=== PATIENT | female | born 1995 | race American Indian/Alaskan Native ===

== ENCOUNTER 2021-06-11 16:05 | Inpatient (IN) | payer MEDICAID ==
[2021-06-11] MEDS ORDERED: LACTATED RINGERS 1,000 ML ONE (16:52)
--- NOTE | 2021-06-11 16:58 | Event Note ---
Date: 06/11/21 pt arrived via EMS w/ c/o ctx. She denies leaking of fluid. Pt reports being seen at her doctor's office yesterday and states they stripped her membranes and had some bleeding earlier today but that has since stopped. Patient states she doesn't know when her due date is "some time in May." She reports LMP was "sometime before or after MLK day" but she doesn't know. hx of x 3 - when asked about the weights she reports the first one was "small" and the other 2 children were "juicy" but she does not know their size. SVE 2.5/70/-2, mi dposition and soft. ctx do not appear regular, FHT currently CAT 2. Will give IVF and get u/s for BPP and presentation.
[2021-06-11] MEDS ORDERED: LACTATED RINGERS 1,000 ML IV SCH (17:00)
--- NOTE | 2021-06-11 17:14 | History and Physical Report ---
History of Present Illness Date of examination: 06/11/21 Chief complaint: contractions since yesterday when her doctor stripped her membranes History of present illness: Pt reports care with Dr. Serrano at the [facility]. She is a poor historian - does not know EDC, LMP, weights of other babies. she thinks maybe 06/19/2021. She reports 3 NSVDs; denies hx GDM, pre-e or surgery for childbirth She reports T&A as child Attempting to get records from [facility], they do not have access to records. called number on pt's appt card - spoke to 4 different answering services and finally spoke to [employer] medical answering service. They will send message to Dr. Serrano. 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: denies: cancer, chlamydia, fibroids, gonorrhea, hepatitis B, hepatitis C, herpes, HIV, syphilis, trichomonas Family/Genetic History: none Social history: no significant social history - Obstetrical History Expected Date of Delivery: 06/04/21 Actual Gestation: 41 Week(s) 0 Day(s) : 4 Para: 3 Hx # Term Pregnancies: 3 Number of Pregnancies: 0 Spontaneous Abortions: 0 Induced : 0 Number of Living Children: 3 Medications and Allergies Allergies Allergy/AdvReac Type Severity Reaction Status Date / Time No Known Allergies Allergy Verified 06/11/21 17:37 Active Meds: Active Medications Lactated Ringer's (Lactated Ringers) 1,000 mls @ 150 mls/hr IV DIRECT CARLEY Review of Systems All systems: negative - Vital Signs Vital signs: Vital Signs Pulse Pulse Ox 112 H 96 06/11/21 16:23 06/11/21 16:23 Temp Pulse Resp BP Pulse Ox 102 H 112/53 100 06/11/21 17:03 06/11/21 16:50 06/11/21 17:03 - Physical Exam Breasts: Positive: normal Cardiovascular: Regular rate Lungs: Positive: Normal air movement Abdomen: Positive: normal appearance, soft Genitourinary (Female): Positive: normal external genitalia, normal perenium Vulva: both: normal Vagina: Positive: normal moisture Uterus: Positive: normal size, normal contour Anus/Rectum: Positive: normal perianal skin Extremities: Positive: normal Deep Tendon Reflex Grade: Normal +2 - Obstetrical FHR: category 2 Uterine Contraction Monitor Mode: External Cervical Dilatation: 2 Cervical Effacement Percentage: 70 station: -2 Uterine Contraction Frequency (min): 4-5 Uterine Contraction Duration: 60 Uterine Contraction Pattern: Regular Uterine Tone Measurement Phase: Contraction Uterine Contraction Intensity: Mild Results All other labs normal. Assessment and Plan 25y/o due sometimes in May, reports painful ctx since having her membrane stripped in her doctor's office yesterday. Pt reports she is supposed to deliver at [place] and that her Doctor is "Dr. Serrano." CAT 2 FHT with baseline 160's and late decels. walk-in labs ordered. will start treatment for unknown GBS. pt reports baby was breech, feels like vtx during SVE but will get u/s to verify. Plan for IVF bolus, AROM and IUPC/ISE placement for accurate monitoring. Admission orders in EMR. plan to admit and place internal monitors as soon as vertex is confirmed. Working EDC set by patient's response on admission questionnaire (06/04/2021), pt later admitted she made that date up but it's the only date we have. FHT necessitate intervention at this time. Dr. Swain made aware. * [facility] has no records for patient. - Patient Problems (1) Poor historian Current Visit: Yes Status: Acute (2) Non-reassuring electronic monitoring tracing Current Visit: Yes Status: Acute
[2021-06-11 17:57] LABS: Basophils % (Auto) 0.3 % (0.0-1.8); Eosinophils # (Auto) 0.1 K/mm3 (0.0-0.4); Eosinophils % (Auto) 0.6 % (0.0-4.3); Hematocrit 35.5 % (30.3-42.9); Hemoglobin 12.1 gm/dl (10.1-14.3); Lymphocytes # (Auto) 1.7 K/mm3 (1.2-5.4); Lymphocytes % (Auto) 14.7 % (13.4-35.0); Mean Corpuscular HGB Conc 34 % (30-34); Mean Corpuscular Volume 93 fl (79-97); Monocytes # (Auto) 0.5 K/mm3 (0.0-0.8); Monocytes % (Auto) 4.7 % (0.0-7.3); Platelet Count 205 K/mm3 (140-440); Red Blood Count 3.81 M/mm3 (3.65-5.03); Red Cell Distribution Width 14.3 % (13.2-15.2)
--- NOTE | 2021-06-11 18:16 | Event Note ---
Date: 06/11/21 Patient now c/o leaking fluid x2 days, no bag noted during second exam. Purulent meconiucm fluid noted when IUPC placed - suspect chorio. Pt has progressed to 4cms rather quickly, ctx are now 2 minutes apart.
[2021-06-11 18:28] LABS: Hepatitis C Virus Antibody Non-Reactive (NonReactive)
[2021-06-11] MEDS ORDERED: OXYTOCIN DRIP 30 UNITS/500 ML BAG IV SCH (18:35)
--- NOTE | 2021-06-11 18:38 | Ultrasound Report ---
Limited obstetrical ultrasound INDICATION: Advanced , position evaluation COMPARISON: None FINDINGS: Advanced intrauterine fetus is seen in a cephalic position. Central is not well imaged but is free of the internal cervical os. cardiac activity was documented at 159 bpm. Signer Name: Derik Pastrana MD Signed: 06/11/2021 6:34 PM Workstation Name: [id number]
[2021-06-11] MEDS ORDERED: AMPICILLIN/NS 2 GM/100 ML 2 GM/100 ML BAG IV ONE (19:00)
[2021-06-11] MEDS ORDERED: ACETAMINOPHEN 500 MG TAB PO ONE (19:00)
[2021-06-11] MEDS ORDERED: SODIUM CHLORIDE 0.9% 500 ML 500 ML ONE (19:36)
[2021-06-11] MEDS ORDERED: LACTATED RINGERS 250 ML IV SOLN IV ONE (19:54)
[2021-06-11] MEDS ORDERED: ONDANSETRON 4 MG/2 ML INJ IV PRN (19:54)
[2021-06-11] MEDS ORDERED: NALOXONE 2 MG/2 ML INJ IV PRN (19:54)
[2021-06-11] MEDS ORDERED: NalbUPHINE 10 MG/1 ML INJ IV PRN (19:54)
[2021-06-11] MEDS ORDERED: diphenhydrAMINE 50 MG/ML VIAL IV PRN (19:54)
[2021-06-11] MEDS ORDERED: ePHEDrine SULFATE 50 MG/1 ML INJ IV PRN (19:54)
[2021-06-11] MEDS ORDERED: fentaNYL-BUPIV 2 MCG/ML-0.125% 200 MCG/100 ML BAG EPIDURAL SCH (20:00)
--- NOTE | 2021-06-11 20:00 | Progress Note ---
Assessment and Plan - Patient Problems (1) 39 weeks gestation of Current Visit: Yes Status: Acute (2) Poor historian Current Visit: Yes Status: Acute (3) Body mass index (BMI) greater than 40 Current Visit: Yes Status: Acute Plan to address problem: Observe closely Subjective - Subjective Date of service: 06/11/21 Principal diagnosis: IUP@39 6/7 weeks, poor historian Interval history: S/w from [facility] who states EDC 06/12/2021, she was being evaluated at their facility d/t Morbid obesity and anxiety (no medication). EFW last week ~7lb 7oz, cephalic. No other complications. Patient reports: loss of fluid, movement normal, contractions Objective - Vital Signs Vital Signs: Vital Signs - 12hr 06/11/21 06/11/21 06/11/21 16:23 16:28 16:33 Temperature Pulse Rate 112 H 101 H 112 H Respiratory Rate Blood Pressure O2 Sat by Pulse 96 95 96 Oximetry 06/11/21 06/11/21 06/11/21 16:38 16:43 16:45 Temperature Pulse Rate 98 H 101 H 116 H Respiratory Rate Blood Pressure O2 Sat by Pulse 97 97 87 Oximetry 06/11/21 06/11/21 06/11/21 16:48 16:50 16:53 Temperature Pulse Rate 104 H 95 H 105 H Respiratory Rate Blood Pressure 112/53 O2 Sat by Pulse 98 96 Oximetry 06/11/21 06/11/21 06/11/21 16:58 17:03 17:08 Temperature Pulse Rate 94 H 102 H 110 H Respiratory Rate Blood Pressure O2 Sat by Pulse 98 100 98 Oximetry 06/11/21 06/11/21 06/11/21 17:09 17:13 17:16 Temperature Pulse Rate 59 L 113 H 52 L Respiratory Rate Blood Pressure O2 Sat by Pulse 72 L 98 92 Oximetry 06/11/21 06/11/21 06/11/21 17:18 17:22 17:23 Temperature Pulse Rate 90 96 H 96 H Respiratory Rate Blood Pressure 123/72 O2 Sat by Pulse 100 100 Oximetry 06/11/21 06/11/21 06/11/21 17:28 17:33 17:38 Temperature Pulse Rate 92 H 89 99 H Respiratory Rate Blood Pressure O2 Sat by Pulse 100 100 100 Oximetry 06/11/21 06/11/21 06/11/21 17:43 18:20 18:38 Temperature 98.3 F Pulse Rate 98 H 107 H Respiratory 20 Rate Blood Pressure O2 Sat by Pulse 100 100 Oximetry 06/11/21 06/11/21 06/11/21 18:43 18:48 18:53 Temperature Pulse Rate 109 H 108 H 111 H Respiratory Rate Blood Pressure O2 Sat by Pulse 100 100 100 Oximetry 06/11/21 06/11/21 06/11/21 18:55 18:58 19:03 Temperature Pulse Rate 112 H 111 H 107 H Respiratory Rate Blood Pressure 121/71 O2 Sat by Pulse 100 100 Oximetry 06/11/21 06/11/21 06/11/21 19:08 19:13 19:18 Temperature Pulse Rate 101 H 111 H 106 H Respiratory Rate Blood Pressure O2 Sat by Pulse 100 100 100 Oximetry 06/11/21 06/11/21 06/11/21 19:23 19:28 19:33 Temperature Pulse Rate 111 H 105 H 101 H Respiratory Rate Blood Pressure O2 Sat by Pulse 100 100 100 Oximetry 06/11/21 06/11/21 19:38 19:43 Temperature Pulse Rate 101 H 105 H Respiratory Rate Blood Pressure O2 Sat by Pulse 100 100 Oximetry - Exam Breasts: deferred Lungs: Normal air movement Abdomen: Present: soft, other (obese). Absent: tenderness Vulva: both: normal Uterus: Present: fundal height above umbilicus. Absent: tenderness FHR: category 2 Uterine Contraction Monitor Mode: Internal Cervical Dilatation: 4 Cervical Effacement Percentage: 50 station: -2 Uterine Contraction Frequency (min): 2-3 Uterine Contraction Pattern: Regular Extremities: normal - Labs Labs: Abnormal Labs 06/11/21 17:30 WBC 11.3 H Seg Neutrophils % 79.7 H Seg Neutrophils # 9.0 H Laboratory Results - last 24 hr 06/11/21 06/11/21 06/11/21 17:30 17:30 17:30 WBC 11.3 H RBC 3.81 Hgb 12.1 Hct 35.5 MCV 93 MCH 32 MCHC 34 RDW 14.3 Plt Count 205 Lymph % (Auto) 14.7 [place] % (Auto) 4.7 Eos % (Auto) 0.6 Baso % (Auto) 0.3 Lymph # (Auto) 1.7 [place] # (Auto) 0.5 Eos # (Auto) 0.1 Baso # (Auto) 0.0 Seg Neutrophils % 79.7 H Seg Neutrophils # 9.0 H Syphilis IgG Antibody Hep Bs Antigen Nonreactive Hepatitis C Antibody Non-reactive HIV 1&2 Antibody Rapid HIV P24 Antigen Rubella IgG Antibody Immune Blood Type 06/11/21 06/11/21 06/11/21 17:30 17:30 19:04 WBC RBC Hgb Hct MCV MCH MCHC RDW Plt Count Lymph % (Auto) [place] % (Auto) Eos % (Auto) Baso % (Auto) Lymph # (Auto) [place] # (Auto) Eos # (Auto) Baso # (Auto) Seg Neutrophils % Seg Neutrophils # Syphilis IgG Antibody Nonreactive Hep Bs Antigen Hepatitis C Antibody HIV 1&2 Antibody Rapid Non react HIV P24 Antigen Non react Rubella IgG Antibody Blood Type O POSITIVE
--- NOTE | 2021-06-11 20:26 | Anesthesia Consultation ---
Anesthesia Consult and Med Hx Date of service: 06/11/21 - Airway Anesthetic Teeth Evaluation: Good ROM Head & Neck: Adequate Mental/Hyoid Distance: Adequate Mallampati Class: Class III Intubation Access Assessment: Possibly Difficult - Pulmonary Exam CTA: Yes - Cardiac Exam Cardiac Exam: RRR - Pre-Operative Health Status ASA Pre-Surgery Classification: ASA3 Proposed Anesthetic Plan: Epidural - Pulmonary Hx Smoking: Yes Hx Asthma: Yes COPD: No Hx Pneumonia: No Hx Sleep Apnea: No - Cardiovascular System Hx Hypertension: No Hx Heart Attack/AMI: No Hx Angina: No - Central Nervous System Hx Seizures: No Hx Psychiatric Problems: Yes (Depression) - Gastrointestinal Hx Gastroesophageal Reflux Disease: No - Endocrine Hx Renal Disease: No Hx End Stage Renal Disease: No Hx Liver Disease: No Hx Insulin Dependent Diabetes: No Hx Non-Insulin Dependent Diabetes: No Hx Hypothyroidism: No Hx Hyperthyroidism: No - Hematic Hx Anemia: No Hx Sickle Cell Disease: No - Other Systems Hx Alcohol Use: No Hx Obesity: Yes
--- NOTE | 2021-06-11 20:27 | Progress Note ---
Labor Epidural - Labor Epidural Start Time: 20:15 Stop Time: 20:22 Performed by:: BOZENA NAQVI Procedure: Patient is requesting epidural for labor and pain. H&P, labs were reviewed. Patient IDed, H&P reviewed, all questions and concerns were answered, and consent was signed. Timeout was performed at bedside. Patient in sitting position. Sterile prep and drape was performed. 3ml of 1% lidocaine skin wheal at L[3]- L [4]. 18-gauge Qualtré epidural needle was advanced to loss of resistance with air technique 7cm. Negative CSF negative blood. Epidural catheter advanced to [12] centimeters. [negative] Aspiration [negative] test dose. Sterile dressing applied. Patient tolerated procedure.
--- NOTE | 2021-06-11 20:50 | Procedure Note ---
OB Delivery Note - Delivery Date of Delivery: 06/11/21 Surgeon: ZENY MATTHEWS Estimated blood loss: 200cc - Vaginal Delivery presentation: vertex Delivery position: OA Intrapartum events: decreased FHT variability, mult.variable deceleratio, other(please specify) (Maternal obesity, ) Delivery induction: none Delivery monitor: external FHT, external uterine, internal uterine Route of delivery: Delivery placenta: spontaneous (intact) Episiotomy: none Delivery laceration: none Anesthesia: epidural Delivery comments: Patient felt urge to push while sitting for epidural. After completion of epidural she was found to be100/100/+2. She was placed in stirrups and delivery liveborn female infant with one push. Spontaneous cry and vigorous tone. place on blanket on mom's abdomen. Cord clamp placed followed by Mavis clamp after pulsation stopped. Cord cut by SO. RUBIN RN at bedside. Placenta spontaneously delivered intact, order given to sent to pathology. No vaginal, labial, perineal or cervcal lacerations. Fundus firm, Pitocin bolusing IV. - A at 1 minute: 8 at 5 minutes: 9 Gender: Female (7lb 1oz)
[2021-06-11] MEDS ORDERED: AMPICILLIN/NS 1 GM/50 ML 1 GM/50 ML BAG IV SCH (22:00)
[2021-06-12] MEDS ORDERED: diphenhydrAMINE 25 MG CAP PO PRN (00:10)
[2021-06-12] MEDS ORDERED: ONDANSETRON 4 MG/2 ML INJ IV PRN (00:10)
[2021-06-12] MEDS ORDERED: PROMETHAZINE 25 MG RECT SUPP PR PRN (00:10)
[2021-06-12] MEDS ORDERED: PROMETHAZINE 25 MG TAB PO PRN (00:10)
[2021-06-12] MEDS ORDERED: MAGNESIUM HYDROXIDE (MOM) ORAL LIQD UDC PO PRN (00:10)
[2021-06-12] MEDS ORDERED: WITCH HAZEL/ GLYCERIN PAD TP PRN (00:10)
[2021-06-12] MEDS ORDERED: LANOLIN/ZINC/DIMETHICONE (LANSINOH) 7 GM TP PRN (00:10)
[2021-06-12] MEDS: IBUPROFEN 600 MG TAB PO SCH ×2 (02:09→14:54)
--- NOTE | 2021-06-12 08:23 | Progress Note ---
Assessment and Plan Pt in bed, sleeping, infant sleeping in bed w/ her and moved safely to crib. Pt roused, and stated "I feel like I'm on a cloud." No complaints voiced, fundus firm, lochia scant, H&H 12.1/35.5, and VSSAF. Social service consult ordered d/t concerns about pt's ability to care for self and children at d/c. - Patient Problems (1) Poor historian Current Visit: Yes Status: Acute (2) (normal spontaneous vaginal delivery) Current Visit: Yes Status: Acute Plan to address problem: Continue PP Pathway Anticipate D/C tomorrow Subjective - Subjective Date of service: 06/12/21 Principal diagnosis: PP Day 1, poor historian Interval history: Pt reports care with [facility]. She is a poor historian - does not know EDC, LMP, weights of other babies. she thinks maybe 06/19/2021. She reports 3 NSVDs; denies hx GDM, pre-e or surgery for childbirth She reports T&A as child Attempting to get records from [facility], they do not have access to records. called number on pt's appt card - spoke to 4 different answering services and finally spoke to [email or web address] medical answering service. They will send message to Dr. Serrano. Patient reports: appetite normal, voiding normally, ambulating normally : doing well Objective - Vital Signs Latest vital signs: Vital Signs Temp Pulse Resp BP BP Pulse Ox Pulse Ox 06/12/21 04:53 97.2 F L 93 H 18 113/71 99 06/11/21 23:10 98.4 F 96 H 18 132/72 99 99 06/11/21 22:58 98.7 F 100 H 18 114/55 99 06/11/21 22:23 110 H 99 06/11/21 22:18 112 H 97 06/11/21 22:14 109 H 114/55 06/11/21 22:13 109 H 99 06/11/21 22:08 103 H 97 06/11/21 22:03 113 H 98 06/11/21 22:00 105 H 119/57 06/11/21 21:58 105 H 98 06/11/21 21:53 103 H 97 06/11/21 21:48 105 H 98 21 21:45 116 H 199/163 21 21:43 214 H 99 06/11/21 21:38 110 H 99 06/11/21 21:33 145 H 99 06/11/21 21:28 122 H 100 06/11/21 21:23 122 H 99 21 21:18 119 H 99 06/11/21 21:15 108 H 127/57 06/11/21 21:13 121 H 99 06/11/21 21:08 141 H 100 06/11/21 21:03 117 H 95 06/11/21 21:02 113 H 94 21 20:58 103 H 98 21 20:53 102 H 97 06/11/21 20:52 104 H 150/67 06/11/21 20:48 103 H 91 06/11/21 20:47 88 114/75 06/11/ 20:43 111 H 100 06/11/21 20:42 105 H 110/55 06/11/21 20:38 100 H 100 06/11/21 20:33 100 H 100 06/11/21 20:28 110 H 100 06/11/21 20:27 113 H 180/75 06/11/21 20:23 107 H 100 21 20:18 98 H 100 06/11/21 20:17 106 H 87 06/11/21 20:13 104 H 99 06/11/21 20:08 100 H 99 06/11/21 20:03 98 H 100 06/11/21 19:58 98 H 100 21 19:53 106 H 100 21 19:48 102 H 100 06/11/21 19:43 105 H 100 21 19:38 101 H 100 06/11/21 19:33 101 H 100 06/11/21 19:28 105 H 100 10/21 19:23 111 H 100 10/21 19:18 106 H 100 10//21 19:13 111 H 100 10/21 19:08 101 H 100 10/21 19:03 107 H 100 1013/21 18:58 111 H 100 10/21 18:55 112 H 121/71 21 18:53 111 H 100 10/21 18:48 108 H 100 06/11/21 18:43 109 H 100 06/11/21 18:38 107 H 100 06/11/21 18:20 98.3 F 20 06/11/21 17:43 98 H 100 06/11/21 17:38 99 H 100 06/11/21 17:33 89 100 06/11/21 17:28 92 H 100 06/11/21 17:23 96 H 100 06/11/21 17:22 96 H 123/72 06/11/21 17:18 90 100 06/11/21 17:16 52 L 92 06/11/21 17:13 113 H 98 06/11/21 17:09 59 L 72 L 06/11/21 17:08 110 H 98 06/11/21 17:03 102 H 100 06/11/21 16:58 94 H 98 06/11/21 16:53 105 H 96 06/11/21 16:50 95 H 112/53 06/11/21 16:48 104 H 98 06/11/21 16:45 116 H 87 06/11/21 16:43 101 H 97 06/11/21 16:38 98 H 97 06/11/21 16:33 112 H 96 06/11/21 16:28 101 H 95 06/11/21 16:23 112 H 96 Intake and Output 06/11/21 06/12/21 06/12/21 23:59 07:59 15:59 Intake Total 200 Output Total 800 800 Balance -800 -600 Intake: Intake, Free Water 200 Output: Urine 800 800 Indwelling Catheter 800 Void 800 Other: Total, Output Amount 800 500 # Bowel Movements 1 Weight 107.955 kg Estimated Blood Loss 200 - Exam Cardiovascular: Present: Regular rate Lungs: Present: Normal air movement Abdomen: Present: normal appearance, soft Uterus: Present: normal, firm, fundal height at umbilicus Extremities: Present: normal - Labs Labs: Abnormal lab results 06/11/21 Range/Units 17:30 WBC 11.3 H (4.5-11.0) K/mm3 Seg Neutrophils % 79.7 H (40.0-70.0) % Seg Neutrophils # 9.0 H (1.8-7.7) K/mm3
[2021-06-12 14:06] LABS: Hematocrit 30.8 % (30.3-42.9); Hemoglobin 10.4 gm/dl (10.1-14.3)
[2021-06-12 15:40] LABS: Amphetamine Screen,Urine Negative; Benzodiazepines Screen,Urine Negative; Cannabinoid Screen,Urine Negative; Cocaine Screen,Urine Negative; Methadone Screen,Urine Negative; Opiate Screen,Urine Negative
--- NOTE | 2021-06-12 17:21 | Post Anesthesia Evaluation ---
- Post Anesthesia Evaluation Patient Participated: Yes Airway Patent: Yes Stable Respiratory Function: Yes Nausea/Vomiting: No Temp > 96.8F: Yes Pain Manageable: Yes Adequeate Hydration: Yes Anesthesia Complications: No Block Receding Appropriately: Yes Patient on Ventilator: No
[2021-06-12] MEDS ORDERED: ACETAMINOPHEN 500 MG TAB PO PRN (22:02)
--- NOTE | 2021-06-12 22:07 | Event Note ---
Date: 06/12/21 received call from DOTTIE RN, pt had low grade temp 100.1 on day shift and was given dose of motrin. She is now shivering w/ oral temp of 101. Ordered given for PO Tylenol, urine culture and BC x 2. will continue to monitor.
[2021-06-13] MEDS: IBUPROFEN 600 MG TAB PO SCH ×2 (00:24→05:46)
[2021-06-13] MEDS ORDERED: IBUPROFEN 600 MG TAB PO SCH (07:56)
[2021-06-13] MEDS: IBUPROFEN 800 MG TAB PO SCH ×4 (08:00→23:06)
[2021-06-13] MEDS ORDERED: SODIUM CHLORIDE 0.9% 250ML 250 ML ONE (09:04)
[2021-06-13] MEDS: CEFEPIME/NS 2 GM/100 ML 2 GM/100 ML BAG IV SCH ×2 (09:10→16:51)
[2021-06-13] MEDS: metroNIDAZOLE/NS 500 MG/100 ML 500 MG/100 ML BAG IV SCH ×2 (10:03→17:44)
--- NOTE | 2021-06-13 11:17 | Progress Note ---
Assessment and Plan A: 25 y.o. walk in pt s/p @ term. fever. - Patient Problems (1) fever, current hospitalization Current Visit: Yes Status: Acute Plan to address problem: Blood and urine cultures were sent. Antibiotics ordered. Will continue to monitor temperatures. Subjective - Subjective Date of service: 06/13/21 Principal diagnosis: PP Day 2 , poor historian, fever Patient reports: appetite normal, voiding normally, pain well controlled, flatus, ambulating normally : doing well Objective - Vital Signs Latest vital signs: Vital Signs Temp Pulse Resp BP Pulse Ox Pulse Ox 06/13/21 08:52 97.3 F L 90 18 120/76 100 06/13/21 08:10 99 06/13/21 05:46 20 06/13/21 01:16 98.0 F 100 H 18 118/58 97 06/13/21 00:24 20 06/12/21 22:14 20 06/12/21 22:10 99.0 F 100 H 06/12/21 22:00 101.0 F H 06/12/21 20:00 99 06/12/21 16:55 98.9 F 112 H 18 116/71 97 06/12/21 12:57 100.1 F H 117 H 18 131/81 99 Intake and Output 06/12/21 06/13/21 06/13/21 22:59 06:59 14:59 Intake Total 1200 720 Balance 1200 720 Intake: Oral 480 Intake, Free Water 720 720 Other: Total, Intake Amount 480 # Voids Void 2 2 - Exam Narrative Exam: Pt with a temp max of 101.0 on 06/12 @ 2200. Blood and urine cultures were sent. Sepsis: pelvic infection orders for antibiotics placed. Pt aware that she can not go home at this time and she would have to be afebrile for at least 24 hours before discharge. She is currently afebrile. Temperature this AM was 97.3F. Breasts: Present: normal, other (Denies engorement, pain, tenderness, masses.) Cardiovascular: Present: Regular rate Lungs: Present: Normal air movement Abdomen: Present: normal appearance, soft Vulva: both: normal Uterus: Present: normal, firm, other (No foul smelling lochia noted. ) Extremities: Present: normal
[2021-06-14] MEDS: CEFEPIME/NS 2 GM/100 ML 2 GM/100 ML BAG IV SCH ×2 (00:15→08:30)
[2021-06-14] MEDS: metroNIDAZOLE/NS 500 MG/100 ML 500 MG/100 ML BAG IV SCH ×2 (00:58→09:21)
[2021-06-14] MEDS: IBUPROFEN 800 MG TAB PO SCH ×2 (05:53→11:09)
--- NOTE | 2021-06-14 10:31 | Discharge Summary ---
Providers - Providers Date of Admission: 06/11/21 17:00 Date of discharge: 06/14/21 Attending physician: ZENY MATTHEWS 06/12/21 00:10 Consult to Recording Studio Setup Worker [CONS] Routine Reason For Exam: assistance with , SNS 06/12/21 08:16 Consult to Case Management [CONS] Routine Services Needed at Discharge: Guest Service Representative Notified:: case management Comment:: Assess ability to care for self and children after d/c Primary care physician: ZENY MATTHEWS Hospitalization Reason for admission: Contractions Condition: Good Pertinent studies: H&H 10.430.8 asympotomatic mild anemia d/t acute bloodloss. Fever during pp admission, blood culture negative and pt afebrile >24 hours. Procedures: Hospital course: Uncomplicated hospital and course, fundus firm and lochia scant. Disposition: 01 HOME / SELF CARE / HOMELESS Final Discharge Diagnosis (Prints w/discharge instructions): Time spent for discharge: 15 - Discharge Diagnoses (1) Poor historian Status: Acute (2) (normal spontaneous vaginal delivery) Status: Acute Core Measure Documentation - Palliative Care Palliative Care/ Comfort Measures: Not Applicable - Core Measures Any of the following diagnoses?: none Exam - Constitutional Vitals: Temp Pulse Resp BP Pulse Ox 97.5 F L 84 18 118/82 98 06/14/21 08:01 06/14/21 08:01 06/14/21 08:01 06/14/21 08:01 06/14/21 08:30 General appearance: Present: no acute distress - EENT Eyes: Present: PERRL ENT: hearing intact, clear oral mucosa - Neck Neck: Present: normal ROM - Respiratory Respiratory effort: normal - Abdominal General gastrointestinal: Present: soft, non-tender - Integumentary Integumentary: Present: clear, warm, dry Plan Activity: no restrictions Follow up with: ZENY MATTHEWS MD [Primary Care Provider] - 07/14/21 (Congratulations! Please follow-up with your LIN[employer]WORK SYSTEMS ADMINISTRATOR in 4 weeks or call [phone] to schedule a follow-up in our office in 4 weeks. Your next Depo will be due in 3 months. )
[2021-06-14] MEDS ORDERED: medroxyPROGESTERone ACETATE 150 MG/ML SYRINGE IM NR (11:00)
[2021-06-14 12:53] VITALS: BP 113/77
== END 2021-06-14 13:45 | disposition home or self-care (01) | DRG 774 ==
LOC: TRG 16:05 → APU 16:06 → LD 16:06 → OBSVTOIN 17:00 → TRG 17:59 → OB 23:17
PROVIDERS: ADMIT Obstetrics & Gynecology; ATTEND Obstetrics & Gynecology
PROC: 10E0XZZ Delivery of Products of Conception, External Approach (ICD-10-PCS; principal; 2021-06-11)
PROC: 10907ZC Drainage of Amniotic Fluid, Therapeutic from Products of Conception, Via Natural or Artificial Opening (ICD-10-PCS; 2021-06-11)
PROC: 3E0S3BZ Introduction of Anesthetic Agent into Epidural Space, Percutaneous Approach (ICD-10-PCS; 2021-06-11)
PROC: 3E0S33Z Introduction of Anti-inflammatory into Epidural Space, Percutaneous Approach (ICD-10-PCS; 2021-06-11)
DX: O76 Abnormality in fetal heart rate and rhythm complicating labor and delivery (principal); O86.4 Pyrexia of unknown origin following delivery; Z37.0 Single live birth; Z3A.39 39 weeks gestation of pregnancy; Z20.822 Contact with and (suspected) exposure to COVID-19
CPT/HCPCS: 36415; 76815; 76819; 80307; 85014; 85018; 85025; 86592; 86706; 86762; 86803; 86850; 86900; 86901; 87040; 87086; 87806; 88307; G0378; J0290; J0692; J1050; J2590; J7050; J7120; U0003